=== PATIENT | female | born 1965 | race African-American/Black ===

== ENCOUNTER 2017-04-15 20:39 | Emergency (ER) | payer SELFPAY ==
[~2017-04-15] VITALS: Ht 180.3 cm; Wt 118.0 kg
[2017-04-15] MEDS ORDERED: KETOROLAC 60MG/2ML VIAL IM ONE (22:45)
[2017-04-15 23:14] LABS: HCG SCREEN NEGATIVE
[2017-04-16] MEDS ORDERED: MORPHINE SULFATE 4 MG/ML CPJ (NOT FOR IM USE) IV ONE (00:45)
[2017-04-16 02:00] VITALS: BP 125/67
[2017-04-16 02:03] LABS: CHLORIDE 96 mEq/L (98-107)
[2017-04-16 02:06] LABS: EOSINOPHILS % 0.3 % (0.0-5.0); HEMATOCRIT. 33.5 % (36.0-48.0); LYMPHOCYTES % 13.2 % (20.0-50.0); MEAN CORPUSCULAR VOLUME 79.4 fL (81.0-99.0); MEAN PLATELET VOLUME 7.7 fl (7.4-10.4); MONOCYTES % 8.6 % (2.0-8.0); NEUTROPHILS % 76.9 % (40.0-76.0); PLATELET 346 x1000/uL (130-400); RED BLOOD CELL COUNT 4.22 mill/uL (4.2-5.4); RED CELL DISTRIBUTION WIDTH 13.9 % (11.6-14.6)
[2017-04-16 02:09] LABS: CARBON DIOXIDE 31 mEq/L (21-32)
== END 2017-04-16 05:12 | disposition home or self-care (01) ==
LOC: ER 21:12
DX: M17.11 Unilateral primary osteoarthritis, right knee (principal); M25.561 Pain in right knee; D72.829 Elevated white blood cell count, unspecified; D64.9 Anemia, unspecified; Z98.51 Tubal ligation status; Z98.890 Other specified postprocedural states; Z87.891 Personal history of nicotine dependence
CPT/HCPCS: 36415; 73562; 80048; 84703; 85025; 85651; 96372; 96374; 99285; J1885; J2270